=== PATIENT | male | born 1940 | race Caucasian/White ===

== ENCOUNTER 2018-03-17 20:39 | Emergency (ER) | payer MEDICARE, BC ==
[2018-03-17 21:19] VITALS: BP 112/85
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
[2018-03-17] MEDS ORDERED: Sulfamethox/Trimethoprim DS 800/160* TAB PO ONE (22:05)
== END 2018-03-17 22:25 | disposition home or self-care (01) ==
LOC: UCCORT 20:39
DX: S89.92XA Unspecified injury of left lower leg, initial encounter (principal); W22.8XXA Striking against or struck by other objects, initial encounter; Y92.9 Unspecified place or not applicable
CPT/HCPCS: 87070; 87077; 87186; 87205; 99212; A9270-GY; G0463

== ENCOUNTER 2018-04-03 21:18 | Emergency (ER) | payer MEDICARE, BC ==
[2018-04-03 21:38] VITALS: BP 97/69
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
== END 2018-04-03 21:59 | disposition home or self-care (01) ==
LOC: UCCORT 21:18
DX: S81.819D Laceration without foreign body, unspecified lower leg, subsequent encounter (principal); L03.119 Cellulitis of unspecified part of limb; X58.XXXD Exposure to other specified factors, subsequent encounter; Z79.2 Long term (current) use of antibiotics
CPT/HCPCS: 99212; G0463

== ENCOUNTER 2019-04-29 08:38 | Emergency (ER) | payer MEDICARE, BC ==
[2019-04-29 08:54] VITALS: BP 135/65
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
[2019-04-29 14:40] LABS: Albumin/Globulin Ratio 1.1 (1-3); BUN/Creatinine Ratio 15.7 (8-20); Calcium 9.3 mg/dL (8.6-10.3); EGFR African American 70.2 (>60); Globulin 3.5 g/dL (2-4); Potassium 4.9 mmol/L (3.5-5.0); Total Bilirubin 0.5 mg/dL (0.2-1.0); Total Protein 7.5 g/dL (6.4-8.9)
[2019-04-29 14:41] LABS: Hematocrit 43 % (42-52); Hemoglobin 14.7 g/dL (14.0-18.0); Mean Corpuscular HGB Conc 34 g/dL (31-36); Mean Corpuscular Hemoglobin 32 pg (27-31); Mean Corpuscular Volume 95 fL (80-94); Red Blood Count 4.57 10^6 /uL (4.18-5.48); Red Cell Distribution Width 13 % (10-15); White Blood Count 10.5 10^3/uL (3.5-10.8)
[2019-04-29 15:12] LABS: ABS Basophils 0.1 10^3/ul (0-0.2); ABS Eosinophils 0.3 10^3/ul (0-0.6); ABS Lymphocytes 1.9 10^3/ul (1.0-4.8); ABS Monocytes 0.9 10^3/ul (0-0.8); ABS Neutrophils 7.3 10^3/ul (1.5-7.7); Lymphocyte % 18.6 %; Nucleated Red Blood Cells % 0.4; Platelet Count Platelets clumped. 10^3/uL (150-450)
--- NOTE | 2019-04-30 07:33 | UC ---
- Progress Note Progress Note: Lab results come back from April 29, 2019 Creatinines mildly elevated at 1.21 and alcohol phosphatase elevated at 115 We have 1 prior creatinine level which was normal. We have a prior alkaline phosphatase which was at a similar level. Patient was here with fatigue and treated for urinary tract infection with Bactrim. Urine culture results are still pending. Nursing to call patient and ensure that he is improving. Also inform him of the lab results and have him drink plenty of water to help with a creatinine and follow-up with his primary care doctor. Course/Dx - Diagnoses Provider Diagnoses: UTI (urinary tract infection), Dehydration Discharge - Sign-Out/Discharge Documenting (check all that apply): Patient Departure All imaging exams completed and their final reports reviewed: No Studies - Discharge Plan Condition: Stable Disposition: HOME Prescriptions: Sulfamethox/Trimethoprim DS* [Bactrim DS 800/160 TAB*] 1 tab PO BID 5 Days #10 tab Patient Education Materials: Dehydration (ED), Urinary Tract Infection in Men ( ED) Referrals: Philip Hassan MD [Primary Care Provider] - 1 Week Additional Instructions: Complete antibiotics, it has been prescribed to the pharmacy. Somebody will call you with any abnormal test results. Maintain hydration. Try electrolyte drinks like Gatorade. Follow up with your primary care doctor is a scheduled for . Patients blood pressure slightly high in Urgent care today , plan follow up with PCP for better control. Return to Urgent care / ER if symptoms get worse. - Billing Disposition and Condition Condition: STABLE Disposition: Home
== END 2019-04-29 10:20 | disposition home or self-care (01) ==
LOC: UCCORT 08:38
DX: N39.0 Urinary tract infection, site not specified (principal); E86.0 Dehydration; Z85.46 Personal history of malignant neoplasm of prostate; Z92.3 Personal history of irradiation
CPT/HCPCS: 36415; 80053; 81003; 85025; 87086; 99212; G0463

== ENCOUNTER 2019-07-23 15:27 | Emergency (ER) | payer MEDICARE, BC ==
--- OUTSIDE RECORDS SUMMARY | 2019-07-23 15:48 | XMS REPORT | Continuity of Care Document ---
:1940 Author Organization [facility] Address [address], [place] [id number] Phone Care Team Providers Name Role Phone Sami Carrasco MD Unavailable Unavailable Allergies, Adverse Reactions, Alerts Substance Reaction Status No information Medications Medication Instructions Dosage Effective Dates Status Comments (start - stop) prednisone 5 mg take 4 Tablet by 20 MG - No Longer tablet oral route every Active day for 4 days then decrease by 1 tab every 4 days Problems Condition Effective Dates (start - stop) Clinical Status Comments Pain in joint Polymyalgia rheumatica Elevated ESR Back pain Procedures Procedure Date OFFICE/OUTPATIENT VISIT, NEW ROUTINE VENIPUNCTURE *XRAY ENTIRE SPINE AP/LAT COMPLETE CBC W/AUTO DIFF WBC RBC SED RATE, AUTOMATED ALANINE AMINO (ALT) (SGPT) TRANSFERASE (AST) (SGOT) ASSAY OF CK (CPK) ASSAY OF CREATININE C-REACTIVE PROTEIN ASSAY OF BLOOD/URIC ACID ANTINUCLEAR ANTIBODIES Results Test Name Date and Time Measure Units Reference Range Abnormal Flag Status Comments Panel Description: CBC Final WBC 16:27:00 10.0 10*3/uL 3.7-10.1 Final RBC 16:27:00 4.18 10*6/uL 4.00-5.90 Final HGB 16:27:00 13.2 g/dL 13.9-18.0 L Final HCT 16:27:00 40.8 % 39.0-55.0 Final MCV 16:27:00 97.6 fL 70.0-100.0 Final MCH 16:27:00 31.6 pg 26.0-34.0 Final MCHC 16:27:00 32.3 g/dL 31.0-37.0 Final RDW 16:27:00 12.8 % 10.0-15.0 Final PLATELETS 16:27:00 265 10*3/uL 150-500 Final MPV 16:27:00 8.3 fL 6.0-10.0 Final DESTINEY# 16:27:00 6.42 10*3/uL 2.10-8.00 Final LYM# 16:27:00 2.39 10*3/uL 1.00-5.00 Final MONO# 16:27:00 0.93 10*3/uL 0.10-1.00 Final EOS# 16:27:00 0.2 10*3/uL 0.0-0.5 Final BASO# 16:27:00 0.1 10*3/uL 0.0-0.2 Final DESTINEY% 16:27:00 64.3 % 50.0-80.0 Final LYM% 16:27:00 24.0 % 25.0-50.0 L Final MONO% 16:27:00 9.3 % 2.0-10.0 Final EOS% 16:27:00 1.8 % 0.0-5.0 Final BASO% 16:27:00 0.6 % 0.0-4.0 Final Panel Description: JAMEE W/ REFLEX Final KRZYSZTOF 16:27:00 9 UNITS 0-20 Final Interpretation: Negative < 20; Moderate Positive 21-60; Positive >60.

Panel Description: ESR Final ESR 16:27:00 26 mm/Hr 0-20 H Final Panel Description: ALT Final ALT 16:27:00 48 U/L 30-65 Final Panel Description: AST Final AST 16:27:00 26 U/L 15-37 Final Panel Description: CREATINE KINASE Final CREATINE KINASE 16:27:00 141 U/L 39-308 Final Panel Description: CREATININE Final CREATININE 16:27:00 1.4 mg/dL 0.9-1.2 H Final eGFR 16:27:00 49.0 mL/min/1.73m Final Panel Description: CRP Final CRP 16:27:00 6.4 mg/dL 0.0-1.0 H Final Panel Description: URIC ACID Final URIC ACID 16:27:00 5.2 mg/dL 2.4-8.6 Final Advance Directives Directive Yes / No Effective Date File Name Resuscitation Not Answered N/A N/A Life Support Not Answered N/A N/A Intubation Not Answered N/A N/A Antibiotics Not Answered N/A N/A IV Fluid Support Not Answered N/A N/A Tube Feed Not Answered N/A N/A Other Directive N/A N/A WARNING:The information contained in this section is historical and is provided for information onlyand does not constitute a legal document or any assurance that the information is still accurate. Please verify the information with the olea of the legal document before using it for clinical purposes. Encounters Encounter Practice Location Reason(s) Diagnoses Date Provider Providers Description For Visit Copied on Encounter OFFICE/OUTPA Arthritis Arthritis *New Pain in [facility] Referring [facility] VISIT, [facility] Patient jointPolymyalgi [phone] MD Gallardo. Provider: [facility] Referral a [phone], [phone] [place] [facility] g[facility], [facility], pain [place] [place], [place], [id number], [address] [place] [id number], . [address] tel:[phone], tel:[phone] [place], [place], [id number]. tel:[phone] Family History Family Member Diagnosis Age At Onset No information Immunizations Vaccine Date Status Comments No information Payers Payer name Insurance type Covered constitution party ID Authorization(s) Medicare MB [id number] BCBS No Referral Required [id number] Social History Type Description Quantity Date Captured Comments Alcohol Use Details 3 drinks occasion Caffeine Use Details No Tobacco Use Status Current non-smoker Smoking Status Never smoker Non-Smoking Tobacco : No Details Available : No Details Available 2018 Use Details Sex Male Vital Signs Date / Height Weight BMI Pulse Blood Temperature Respiratory Body Head BMI Pulse Inhaled Time: Rate Pressure Rate Surface Circumference percentile Ox Ox Area 74.00 216.00 in lbs 3 3:28 kg/m PM eter (2) Chief Complaint And Reason For Visit Most recent encounter only, dated '06/13/2019 14:37'. New Patient Referral (chief complaint). Description: Patient is experiencing generalized morning stiffness for 1 Hour, fatigue and weight loss. Patient denies having abdominal pain, hair loss, diarrhea, loss of appetite, eye symptoms, fever, headache, joint swelling, rash, Raynaud's, oral ulcers (mouth sores), dry mouth, photosensitivity and pleuritic pain. Reason For Referral Reason For Referral No information Plan Of Treatment Date Type Action Status Referral Ordered: ordered *XRAY ENTIRE SPINE AP/LAT Appointment Jean Carlos Ramos BOOKED History Of Present Illness Encounter Date Complaint History Of Present Illness *New Patient Referral Patient is experiencing generalized morning stiffness for 1 Hour, fatigue and weight loss. Patient denies having abdominal pain, hair loss, diarrhea, loss of appetite, eye symptoms, fever, headache, joint swelling, rash, Raynaud's, oral ulcers (mouth sores), dry mouth, photosensitivity and pleuritic pain. Functional Status Date Functional Assessment No information Medications Administered Medication Instructions Dosage Effective Dates (start - stop) Status Comments No information Instructions Date Instruction Additional Information No information
[2019-07-23 17:14] VITALS: BP 146/66
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
[2019-07-24 11:51] LABS: ABS Basophils 0.1 10^3/ul (0-0.2); ABS Eosinophils 0.1 10^3/ul (0-0.6); ABS Neutrophils 8.7 10^3/ul (1.5-7.7); Eosinophil % 1.2 %; Hematocrit 43 % (42-52); Hemoglobin 14.4 g/dL (14.0-18.0); Lymphocyte % 16.5 %; Mean Corpuscular HGB Conc 33 g/dL (31-36); Mean Corpuscular Hemoglobin 32 pg (27-31); Mean Corpuscular Volume 96 fL (80-94); Nucleated Red Blood Cells % 0.1; Platelet Count 233 10^3/uL (150-450); Red Blood Count 4.53 10^6 /uL (4.18-5.48); Red Cell Distribution Width 16 % (10-15); White Blood Count 11.9 10^3/uL (3.5-10.8)
[2019-07-24 12:00] LABS: Calcium 9.4 mg/dL (8.6-10.3); Total Bilirubin 0.4 mg/dL (0.2-1.0)
[2019-07-24 12:06] LABS: Albumin/Globulin Ratio 1.4 (1-3); BUN/Creatinine Ratio 23.7 (8-20); C Reactive Protein 3.69 mg/L (<8.01); Globulin 2.8 g/dL (2-4); Total Protein 6.8 g/dL (6.4-8.9)
--- NOTE | 2019-07-25 07:22 | UC ---
- Progress Note Progress Note: Lab work comes back from July 23, 2019. CBC shows a slightly elevated white blood cell count 11.9 thousand normal is 3.5 -10.8. BUN slightly elevated at 27 normal is 6-24. Creatinine was normal. Blood glucose 146 normal range of 70-100. Patient was seen here for increased urinary frequency and urgency and was started on Bactrim for potential UTI. His finger stick blood sugar was also elevated in clinic. Patient does not have a history of diabetes. He's also on daily prednisone for polymyalgia rheumatica. Also MCV and MCH and RDW are slightly elevated. Nursing to call patient and to ensure the patient is having a scheduled follow- up with his primary care doctor and/or his [employer] professor. Course/Dx - Diagnoses Provider Diagnoses: Increased urinary frequency, Hyperglycemia Discharge ED - Sign-Out/Discharge Documenting (check all that apply): Patient Departure All imaging exams completed and their final reports reviewed: No Studies - Discharge Plan Condition: Stable Disposition: HOME Prescriptions: Sulfamethox/Trimethoprim DS* [Bactrim DS 800/160 TAB*] 1 tab PO BID #20 tab Patient Education Materials: Nondiabetic Hyperglycemia (ED), Urinary Urgency and Frequency (DC) Referrals: Philip Hasasn MD [Primary Care Provider] - Additional Instructions: FOLLOW UP WITH YOUR PRIMARY CARE DOCTOR WITHIN 10 DAYS. CALL BOTH YOUR PRIMARY CARE DOCTOR AND HEAT TRANSFER TECHNICIAN TOMORROW TO INFORM THEM OF YOUR URINARY SYMPTOMS AND ELEVATED BLOOD SUGAR. GO TO THE EMERGENCY DEPARTMENT IF NOT IMPROVING OR YOUR CONDITION WORSENS; PAIN , FEVER, YOU FEEL ILL OR ANY QUESTIONS OR CONCERNS - Billing Disposition and Condition Condition: STABLE Disposition: Home
--- NOTE | 2019-07-26 07:16 | UC ---
- Progress Note Progress Note: please notify pt no UTI stop antibiotic see PCP as directed Course/Dx - Diagnoses Provider Diagnoses: Increased urinary frequency, Hyperglycemia Discharge ED - Sign-Out/Discharge Documenting (check all that apply): Post-Discharge Follow Up All imaging exams completed and their final reports reviewed: No Studies - Discharge Plan Condition: Stable Disposition: HOME Prescriptions: Sulfamethox/Trimethoprim DS* [Bactrim DS 800/160 TAB*] 1 tab PO BID #20 tab Patient Education Materials: Nondiabetic Hyperglycemia (ED), Urinary Urgency and Frequency (DC) Referrals: Philip Hassan MD [Primary Care Provider] - Additional Instructions: FOLLOW UP WITH YOUR PRIMARY CARE DOCTOR WITHIN 10 DAYS. CALL BOTH YOUR PRIMARY CARE DOCTOR AND EXECUTIVE CREATIVE DIRECTOR TOMORROW TO INFORM THEM OF YOUR URINARY SYMPTOMS AND ELEVATED BLOOD SUGAR. GO TO THE EMERGENCY DEPARTMENT IF NOT IMPROVING OR YOUR CONDITION WORSENS; PAIN , FEVER, YOU FEEL ILL OR ANY QUESTIONS OR CONCERNS - Billing Disposition and Condition Condition: STABLE Disposition: Home
== END 2019-07-23 18:04 | disposition home or self-care (01) ==
LOC: UCCORT 15:27
DX: R39.15 Urgency of urination (principal); R35.0 Frequency of micturition; R73.9 Hyperglycemia, unspecified; Z85.46 Personal history of malignant neoplasm of prostate
CPT/HCPCS: 36415; 80053; 81003; 85025; 86140; 87086; 99212; G0463

== ENCOUNTER 2019-12-22 19:34 | Emergency (ER) | payer MEDICARE, BC ==
--- OUTSIDE RECORDS SUMMARY | 2019-12-22 19:40 | XMS REPORT | Continuity of Care Document ---
:1940 External Reference #:[id number] Author Name Richard Amado DO Address [address] [place] [address] Care Team Providers Name Role Phone Richard Amado DO - Family Medicine Care Team Information Nuclear Control Operator [phone] Problems Active Problems Provider Date Plantar fascial fibromatosis Kandi Lira MD Onset: 05/18/2007 Adult health examination Kandi Lira MD Onset: 08/31/2007 Infection screening Kandi Lira MD Onset: 08/31/2007 Thyroid disorder screening Kandi Lira MD Onset: 08/31/2007 Hyperlipidemia screening Kandi Lira MD Onset: 08/31/2007 Electrocardiogram abnormal Kandi Lira MD Onset: 08/31/2007 Neoplasm of uncertain behavior of skin Kandi Lira MD Onset: 08/31/2007 Hearing loss Kandi Lira MD Onset: 08/31/2007 Impotence of organic origin Kandi Lira MD Onset: 10/16/2008 Malignant tumor of prostate Kandi Lira MD Onset: 10/24/2009 Disorder of iron metabolism Kandi Lira MD Onset: 04/12/2014 Abnormal glucose level Kandi Lira MD Onset: 04/12/2014 Cholelithiasis without obstruction Kandi Lira MD Onset: 11/26/2014 Note: dx via sono in Steatosis of liver Kandi Lira MD Onset: 11/26/2014 Note: dx via sono, Polymyalgia rheumatica Richard Amado DO Onset: 11/12/2019 Social History Type Date Description Comments Sex Unknown Tobacco Use Start: Unknown End: Former Cigarette Smoker 1/2 PPD X 5 YRS, Unknown QUIT AT 26 ETOH Use Currently consumes 4 DR/WEEK AFTER GOLF alcohol Tobacco Use Start: Unknown End: Patient is a former Unknown smoker Recreational Drug Use Denies Drug Use Smoking Status Reviewed: 11/12/19 Patient is a former smoker Enjoy Exercising Enjoys Exercising Sun Exposure Does not use sunscreen Seat Belt/Car Seat always uses seat belt Allergies, Adverse Reactions, Alerts Description No Known Drug Allergies Medications Active Medications SIG Qnty Indications Ordering Provider Date Prednisone 1 1/2 Tabs by 30tabs Unknown 5mg Tablets mouth every day History Medications Amoxicillin 1 by mouth 20tabs J02.9 Philip Hassan 08/02/2019 - 875mg twice a day 10/17/2019 Tablets Medications Administered in Office Medication SIG Qnty Indications Ordering Provider Date Depo Medrol 80 MG Philip Hassan MD 05/22/2019 Injection Immunizations CPT Code Status Date Vaccine Reaction Lot # [id number] Given 06/17/2019 Fluzone Highdose Age 65 And Over PER PT Preservative & Antibiotic Free 14602 Given 10/11/2018 Fluzone Highdose Age 65 And Over [id number] Preservative & Antibiotic Free 07739 Given 03/07/2018 Pneumococcal 23 Immunization Adult Or [id number] Immunosuppressed Patient 50661 Given 09/27/2015 Influenza Vac, Quadrivalent, Split, [id number] 0.5mL Dosage, Im Use 10050 Given 09/27/2015 Prevnar 13 Pneumococal Conjugate [id number] Vaccine 73840 Given 04/12/2014 Tdap (Boostrix)tetanus, diptheria [id number] toxoid & acellular pertussis 51416 Given 08/31/2007 Pneumococcal 23 Immunization Adult Or [id number] Immunosuppressed Patient 45702 Given 08/31/2007 Afluria Or Fluvirin Flu Vac [id number] Intramuscular Vital Signs Date Vital Result Comment 11/12/2019 4:00pm Weight 223.00 lb Heart Rate 84 /min BP Systolic 136 mmHg BP Diastolic 70 mmHg Respiratory Rate 18 /min Height 74 inches 6'2" 11/12/19 BMI (Body Mass Index) 28.6 kg/m2 08/02/2019 2:24pm Body Temperature 97.9 F Weight 214.00 lb Heart Rate 88 /min BP Systolic 126 mmHg BP Diastolic 72 mmHg Respiratory Rate 17 /min Height 74 inches 6'2" O2 % BldC Oximetry 97 % BMI (Body Mass Index) 27.5 kg/m2 Results Test Acquired Date Facility Test Result H/L Range Note Hemoglobin A1c 08/22/2019 [place] Hemoglobin A1c 7.1 % High 4.1-5.9 1 Estimated Average Glucose Calc 157 mg/dL High 71-140 [facility] Abnormal 2 finding Culture <SEE NOTE> CBC Auto Diff 07/23/2019 [facility] White Blood 11.9 10^3/uL High 3.5-1 3 Count 0.8 Red Blood Count 4.53 10^6/uL Normal 4.18-5.48 Hemoglobin 14.4 g/dL Normal 14.0-18.0 Hematocrit 43 % Normal 42-52 Mean Corpuscular Volume 96 fL High 80-94 Mean Corpuscular Hemoglobin 32 pg High 27-31 Mean Corpuscular HGB Conc 33 g/dL Normal 31-36 Red Cell Distribution Width 16 % High 10-15 Platelet Count 233 10^3/uL Normal 150-450 Mean Platelet Volume 10.0 fL Normal 7.4-10.4 Abs Neutrophils 8.7 10^3/uL High 1.5-7.7 Abs Lymphocytes 2.0 10^3/uL Normal 1.0-4.8 Abs Monocytes 1.0 10^3/uL High 0-0.8 Abs Eosinophils 0.1 10^3/uL Normal 0-0.6 Abs Basophils 0.1 10^3/uL Normal 0-0.2 Abs Nucleated RBC 0.0 10^3/uL Granulocyte % 73.1 % Lymphocyte % 16.5 % Monocyte % 8.6 % Eosinophil % 1.2 % Basophil % 0.6 % Nucleated Red Blood Cells % 0.1 Comp Metabolic Panel 07/23/2019 [facility] Sodium 136 mmol/L Normal 135-145 Potassium 5.0 mmol/L Normal 3.5-5.0 Chloride 105 mmol/L Normal 101-111 Co2 Carbon Dioxide 25 mmol/L Normal 22-32 Anion Gap 6 mmol/L Normal 2-11 Calcium 9.4 mg/dL Normal 8.6-10.3 Albumin 4.0 g/dL Normal 3.2-5.2 Total Bilirubin 0.40 mg/dL Normal 0.2-1.0 Glucose 146 mg/dL High 70-100 Blood Urea Nitrogen 27 mg/dL High 6-24 Creatinine 1.14 mg/dL Normal 0.67-1.17 BUN/Creatinine Ratio 23.7 High 8-20 Total Protein 6.8 g/dL Normal 6.4-8.9 Globulin 2.8 g/dL Normal 2-4 Albumin/Globulin Ratio 1.4 Normal 1-3 Alkaline Phosphatase 97 U/L Normal 34-104 Alt 33 U/L Normal 7-52 Ast 23 U/L Normal 13-39 Egfr Non- 62.0 >60 Egfr 75.0 >60 4 Laboratory test 07/23/2019 [facility] C Reactive 3.69 mg/L Normal <8.01 5 finding Protein Laboratory test 07/23/2019 [facility] Point of 154 mg/dL High 70-100 6 finding Care Glucose Urine Culture And 07/23/2019 [facility] Urine SEE RESULT 7 , 8 Sensitivities Culture BELOW Poc Urinalysis 07/23/2019 [facility] Poc Glucose, Trace Abnormal Negative Urine Poc Bilirubin, Urine Negative Negative Poc Ketone, Urine Negative Negative Poc Specific Mountain, Urine 1.020 Normal 1.010-1.030 Poc Blood, Urine Negative Negative Poc pH, Urine 5.5 Normal 5-9 Poc Protein, Urine Negative Negative Poc Urobilinogen, Urine 0.2 Negative Poc Nitrite, Urine Negative Negative Poc Leukocytes, Urine Negative Negative Poc Color, Urine Yellow Poc Clarity, Urine Clear 9 Laboratory test 06/11/2019 [facility](Fecal Occult Negative Negative finding Blood) Laboratory test 06/07/2019 [facility] Hematocrit 39.7 % Low (41.0-53.0) 10 finding Laboratory test 06/07/2019 [facility] Cytology Fluid SEE NOTE 11 finding Specimen RBC 4.22 10*6/uL Low (4.60-6.10) 12 Rout Urine W/ Micro -RL 06/07/2019 [facility] Color YELLOW Appearance CLEAR Spec Grav Urine 1.022 (1.003-1.030) PH Urine 5.0 (5.0-7.5) Leuk Esterase NEGATIVE (Neg) Nitrite Urine NEGATIVE (Neg) Protein Urine NEGATIVE (Neg) Glucose Urine NEGATIVE (Neg) Ketone Urine NEGATIVE (Neg) Urobilinogen 0.2 mg/dL (0-1.0) Bilirubin Urine NEGATIVE (Neg) Blood/HGB Urine NEGATIVE (Neg) Epithelial Cells NEGATIVE [HPF] (Neg) Hyaline Casts 1.9 [LPF] (0-5) Bacteria NEGATIVE [HPF] (Neg) Urine WBC 6.5 [HPF] (0-8) Urine RBC 1.2 [HPF] (0-3) 13 Retic Count -RL 06/07/2019 [facility] Retic % 1.2 % (0.6-2.1) Retic Index 1.0 % (0.5-1.9) Absolute Retic 0.05 10*6/uL (0.027-0.101) 14 Laboratory test 06/07/2019 [facility] Urine Culture Microbiology res <SEE 15 finding NOTE> Iron Panel 06/07/2019 [facility] Iron, Total 128 g/dL 65-175 Transferrin 191.0 mg/dL Low 203.0-362.0 Tibc (calc) 267 g/dL 261-478 % Iron Saturation 47.9 % High 13.0-45.0 Laboratory test finding 06/07/2019 [facility] Vitamin B12 329 pg/mL 180- 914 Folate 16.5 ng/ml 5.9-24.8 Laboratory test finding 06/04/2019 [facility] Lipase 145 U/L (65-230) 16 Magnesium 2.0 mg/dL (1.7-2.4) 17 Phosphorus 3.5 mg/dL (2.5-4.5) 18 TSH,Ultrasensitive 3.360 mIU/L (0.360-4.170) 19 Esr 88 mm/h High (0-20) 20 C Reactive Protein 5.3 mg/dL High (0.0-0.5) 21 Hepatic Function 06/04/2019 [facility] Total Protein 8.5 g/dL High (6.4-8.2 ) Albumin 3.4 g/dL (3.2-4.5) Globulin 5.1 g/dL High (2.7-4.3) Alb/Glob Ratio 0.7 RATIO Bilirubin,Total 0.7 mg/dL (0.0-1.0) Bilirubin,Conjugated 0.2 mg/dL (0.0-0.3) Bilirubin,Unconj. 0.5 mg/dL (0.0-0.7) Alkaline Phosphatase 154 U/L High (45-117) Ast (Sgot) 17 U/L (11-39) Alt (SGPT) 36 U/L (12-78) 22 Laboratory test finding 06/04/2019 [facility] CK 111 U/L (39-308) 23 CBC With Diff 06/04/2019 [facility] WBC 10.9 10*3/uL (4.1-11.0) RBC 4.41 10*6/uL Low (4.60-6.10) HGB 14.0 g/dL (13.5-18.0) HCT 41.1 % (41.0-53.0) MCV 93.1 fL (80.0-95.0) MCH 31.7 pg (27.0-32.0) MCHC 34.0 g/dL (32.0-36.0) RDW 13.2 % (10.5-14.5) PLT 295 10*3/uL (150-450) MPV 9.1 fL (7.1-10.7) Neut % 71.0 % (35.0-75.0) Lymph % 18.5 % (16.0-52.0) [place] % 8.3 % High (0.0-8.0) Eos % 1.5 % (0.0-5.0) Baso % 0.7 % (0.0-4.0) Neut # 7.8 10*3/uL High (1.8-7.7) Lymph # 2.0 10*3/uL (1.2-4.8) [place] # 0.9 10*3/uL High (0.0-0.8) Eos # 0.2 10*3/uL (0.0-0.5) Baso # 0.1 10*3/uL (0.0-0.2) 24 Poc Urinalysis 06/04/2019 [facility] Poc Urine Color DESMOND Poc Urine Appearance CLEAR Poc Spec Grav Urine 1.025 (1.003-1.030) Poc PH Urine 5.5 (5.0-7.5) Poc Leuk Esterase Ur TRACE (Neg) Poc Nitrite Urine NEGATIVE (Neg) Poc Protein Urine 2+ mg/dL Abnormal (Neg) Poc Glucose Urine NEGATIVE mg/dL (Neg) Poc Ketone Urine NEGATIVE mg/dL (Neg) Poc Urobilinogen Ur 0.2 EU/dL (0.2-1.0) Poc Bilirubin Ur NEGATIVE (Neg) Poc Blood HGB Urine NEGATIVE (Neg) 25 Laboratory test 06/04/2019 [facility] Poc Troponin I <0.01 ng/mL Low (0.01- 0.07) 26 finding Chem 8 Panel 06/04/2019 [facility] Poc Sodium 137 mmol/L (136-145) Poc Potassium 4.7 mmol/L (3.6-5.2) Poc Chloride 103 mmol/L (100-108) Poc Co2 26 mmol/L (22-31) Poc Anion Gap 8 mmol/L (7-16) Poc BUN 28 mg/dL High (7-24) Poc Creatinine 1.3 mg/dL (0.8-1.3) Poc Buncr 21.5 RATIO High (10.0-20.0) Poc Glu 123 mg/dL High (70-99) Poc Ionized Calcium 4.8 mg/dL (4.6-5.3) Poc GFR 53 ml/min/1.73m2 Low (>59) Poc GFR Amer >60 ml/min/1.73m2 (>59) Poc GFR Interp <SEE NOTE> 27 Poc HCT 44 % (41.0-53.0) Perform Lab [facility] PERFORMED BY [facility] <SEE NOTE> 28 Laboratory test 05/22/2019 [facility] Urine Culture Microbiology res 29 finding <SEE NOTE> Laboratory test 05/22/2019 [facility] Cytology Fluid SEE NOTE 30 finding Specimen Laboratory test 05/22/2019 [facility] PSA 0.520 ng/mL 0.000- 31 finding 4.000 Hemoglobin A1c 05/22/2019 [facility] Hemoglobin A1c 6.6 % High 4.1-5. 9 Estimated Average Glucose Calc 143 mg/dL High 71-140 Laboratory test finding 05/22/2019 [facility] TSH 3.76 uIU/mL 0.35-4.94 Lipid 05/22/2019 [facility] Cholesterol 168 mg/dL 50-199 Triglycerides 158 mg/dL 30-200 HDL 31 mg/dL 29-71 32 Chol/ HDL Ratio 5.5 ratio 4.0-6.7 VLDL 32 mg/dL High 2-29 LDL (Calc) 106 mg/dL High 20-99 33 Comprehensive Met Panel-[facility] 05/22/2019 [facility] Sodium 137 mmol/L 135- 146 34 Potassium 4.2 mmol/L 3.5-5.2 Chloride# 103 mmol/L 97-110 35 Carbon Dioxide 24 mmol/L 24-34 Calcium 9.2 mg/dL 8.5-10.5 36 Glucose 116 mg/dL High 70-105 BUN 17 mg/dL 6-26 Creatinine 1.0 mg/dL 0.5-1.4 Total Protein 7.4 g/dL 6.0-8.0 Albumin 3.5 g/dL Low 3.6-4.9 Globulin 3.9 g/dL High 2.0-3.5 A/G Ratio 0.9 Ratio Low 1.0-2.2 Total Bilirubin 0.7 mg/dL 0.1-1.3 Alkaline Phosphatase 111 U/L 24-140 Alt 29 U/L 3-42 Ast 23 U/L 8-42 Anion Gap 10 mmol/L 5-15 37 Female Egfr 51 Low >60 38 Male Egfr 68 >60 39 CBC with Auto Diff-fcmg 05/22/2019 [facility] WBC 8.6 K/uL 4.1-11.0 RBC 4.09 M/uL Low 4.60-6.10 Hemoglobin 13.1 gm/dL Low 13.5-18.0 Hematocrit 38.6 % Low 41.0-53.0 MCV 94.3 fL 80.0-97.0 MCH 31.9 pg 27.0-32.0 MCHC 33.8 g/dL 32.0-36.0 RDW 13.2 % 11.5-14.5 PLT Count 252 K/ul 140-400 MPV 9.0 FL 7.1-10.7 Neutrophil 71.8 % 35.0-75.0 Lymphocyte 17.6 % 16.0-52.0 Monocyte 7.8 % 2.0-10.0 Eosinophil 2.1 % 0.0-5.0 Basophil 0.7 % 0.0-4.0 Abs Neutrophils 6.1 K/uL 2.1-8.0 Abs Lymphocytes 1.5 K/uL 0.8-5.5 Abs Monocytes 0.7 K/uL 0.1-1.0 Abs Eosinophils 0.2 K/uL 0.0-0.5 Abs Basophils 0.1 K/uL 0.0-0.3 Laboratory test 05/22/2019 [facility] Total Testosterone 141 ng/dL Low 285- 650 finding Adult Male Olga Screen With 05/22/2019 [facility] Olga Screen NEGATIVE Negative Reflex-[facility] dsDNA IgG 1.10 IU/mL 0.00-9.00 40 Arthritis Panel-[facility] 05/22/2019 [facility] Rheumatoid <10.0 IU/mL 0.0-10.0 Factor-[facility] Esr 75 mm/hr High 0-15 CRP-High 51.08 mg/L High 0.00-9.90 41 Uric Acid 5.7 mg/dL 2.6-8.4 Rout Urine W/ Micro -RL 05/22/2019 [facility] YELLOW Appearance CLEAR Spec Grav Urine 1.016 (1.003-1.030) PH Urine 5.5 (5.0-7.5) Leuk Esterase NEGATIVE (Neg) Nitrite Urine NEGATIVE (Neg) Protein Urine NEGATIVE (Neg) Glucose Urine NEGATIVE (Neg) Ketone Urine NEGATIVE (Neg) Urobilinogen 0.2 mg/dL (0-1.0) Bilirubin Urine NEGATIVE (Neg) Blood/HGB Urine NEGATIVE (Neg) Urine WBC * 6-10 [HPF] (0-5) Urine RBC NONE SEEN [HPF] (0-2) 42 1 pt states he has been on prednisone for the past 2 months 2 Microbiology results RESULT Beta Strep Not Group A Isolated 3 [id number] 4 Because ethnic data is not always readily available, this report includes an eGFR for both -Americans and non- Americans. The National Kidney Disease Education Program (NKDEP) does not endorse the use of the MDRD equation for patients that are not between the ages of 18 and 70, are , have extremes of body size, muscle mass, or nutritional status, or are non- or non-. According to the National Kidney Foundation, irrespective of diagnosis, the stage of the disease is based on the level of kidney function: Stage Description GFR(mL/min/1.73 m(2)) 1 Kidney damage with normal or decreased GFR 90 2 Kidney damage with mild decrease in GFR 60-89 3 Moderate decrease in GFR 30-59 4 Severe decrease in GFR 15-29 5 Kidney failure <15 (or dialysis) 5 [id number] 6 Game Producer: [id number] 8 SEE RESULT BELOW Name: JEAN CARLOS RAMOS : [address]: Joe Dyer MD Acct: [id number] Unit: [id number] AGE: 79 Location: [facility] Re07/23/19 SEX: M Status: DEP ER SPEC: [id number] BRETT: 07/23/[address] [facility] [address]: Joe Dyer MD REQ: [id number] RECD: 07/24/19 STATUS: TANYA YU DR: Philip Hassan MD _ SOURCE: URINE SPDESC: ORDERED: Urine Culture COMMENTS: [id number] Procedure Result Reported Site Urine Culture Final 07/25/19- 0955 ML No Growth (<1,000 CFU/mL) * ML - Main Lab . END OF REPORT DEPARTMENT OF PATHOLOGY, [address] [place] [address] Micky Crowder M.D. Director [facility] # [id number] Game Producer: [id number] Unless otherwise specified, testing performed by [facility] [address] [address] 11 [facility]. [address] [place] [address] MISCELLANEOUS CYTOLOGY REPORT Source of Specimen(s): A: LBP Urine, Voided Clinical Diagnosis and History: R82.998 Gross Description LBP Urine, Voided: 6 cc of yellow fluid received Final Diagnosis Specimen Adequacy Satisfactory Final Diagnosis NEGATIVE FOR HIGH-GRADE UROTHELIAL CARCINOMA. Urothelial cells with degenerative features, squamous epithelial cells, acute inflammatory cells and erythrocytes. Processed and screen As applicable, positive and negative controls for all immunohistochemical and/or special stains were reviewed and considered appropriate. Reported: 06/13/2019 11:07 Electronically Signed Out By Magui Castillo D.O. [facility] Operator: Isatu PAULINO(ASC) [facility] [place] ICD Code: R82.998 CPT Code: A: 00604L Unless otherwise specified, testing performed by [facility] [address] [address] Unless otherwise specified, testing performed by [facility] [address] [address] 13 Unless otherwise specified, testing performed by [facility] [address] [address] 14 Unless otherwise specified, testing performed by [facility] [address] [address] 15 Microbiology results SOURCE Clean Catch Midstream FINAL RESULT No growth 16 Unless otherwise specified, testing performed by [facility] [address] [address] 17 Unless otherwise specified, testing performed by [facility] [address] [address] 18 Unless otherwise specified, testing performed by [facility] [employer] [address] [address] 19 PERFORMED AT [address] [place] [address] Unless otherwise specified, testing performed by [facility] [address] [place] [address] 20 Unless otherwise specified, testing performed by [facility] [address] [place] [address] 21 Unless otherwise specified, testing performed by [facility] [address] [place] [address] 22 Unless otherwise specified, testing performed by [facility] [address] [place] [address] 23 Unless otherwise specified, testing performed by [place] [address] 24 Unless otherwise specified, testing performed by [facility] [address] [place] [address] 25 PERFORMED BY [facility] Unless otherwise specified, testing performed by [facility] [place] [address] 26 New reference range in effect 19. Less than 0.08: Myocardial injury unlikely Greater than or equal to 0.08: Highly suggestive of myocardial injury Correlation with rise and/or fall of serial troponins, clinical symptoms, and ECG changes is necessary. PERFORMED BY [facility] Unless otherwise specified, testing performed by [facility] [place] [address] 27 NORMAL KIDNEY FUNCTION OR MILD DISEASE - GFR >OR= 60 CHRONIC KIDNEY DISEASE - GFR 15 - 59 RENAL FAILURE - GFR <15 Est. GFR calculation based on the MDRD study equation, which assumes a steady state for creatinine. Est. GFR should not be used for medication dosing. 28 PERFORMED BY [facility] Unless otherwise specified, testing performed by [facility] [place] [address] 29 Microbiology results SOURCE Clean Catch Midstream FINAL RESULT No growth 30 [facility]. [address] [place] [address] MISCELLANEOUS CYTOLOGY REPORT Source of Specimen(s): A: LBP Urine, Voided Clinical Diagnosis and History: R82.998 Gross Description LBP Urine, Voided: 5cc clear yellow fluid Final Diagnosis Specimen Adequacy Satisfactory Final Diagnosis NEGATIVE FOR HIGH-GRADE UROTHELIAL CARCINOMA. Squamous epithelial cells, urothelial cells with degenerative features, acute inflammatory cells, and RBCs. Processed and screen As applicable, positive and negative controls for all immunohistochemical and/or special stains were reviewed and considered appropriate. Reported: 05/29/2019 14:01 Electronically Signed Out By Magui Castillo D.O. [facility] Operator: Ankita PAULINO([facility]) [facility] ICD Code: R82.998 CPT Code: A: 27498K Unless otherwise specified, testing performed by [facility] [place] [address] 31 Beginning 12/12/06 PSA values assayed at [email or web address] uses chemiluminescence methodology manufactured by [employer] for use on the DXI analyzer. Values obtained with different assay methods or kits can not be used interchangeably. Serum PSA measurement is not an absolute test for malignancy. The PSA value should be used in conjunction with information available from clinical evaluation and other diagnostic procedures. 32 Per NCEP ATP III Guidelines: Results lower than 40 mg/dL are suggestive of increased risk for coronary artery disease. Results > or = to 60 mg/dL are considered a negative risk factor. 33 Per NCEP ATP III Guidelines: Normal Population <130 Patients with medical conditions: CHD/DM Optimal: <100 Borderline high: 130-159 High: 160-189 Very high: >189 34 Updated reference range on new analyzer 35 Updated reference range on new analyzer 36 Updated reference range 02-14-2019 37 Updated Reference Range 38 Concerning GFR Guidelines for Americans: Normal function or mild renal disease, if clinically at risk: >/= 60 mL/min Moderately decreased: 30-59 Severely decreased: 15-29 Renal failure: <15 There is reduced accuracy above 60ml/min/1.73 m squared, but the numeric value may be clinically useful in the near 60 range 39 Concerning GFR Guidelines: Normal function or mild renal disease, if clinically at risk: >/= 60 mL/min Moderately decreased: 30-59 Severely decreased: 15-29 Renal failure: <15 There is reduced accuracy above 60ml/min/1.73 m squared, but the numeric value may be clinically useful in the near 60 range Glomerular Filtration Rate (GFR) is estimated based on the CKD-EPI equation, which assumes a steady state for creatinine as recommended by the National Kidney Disease Education Program in conjunction with the National Institutes of Health and the National Kidney Foundation. Clinical conditions in which it may be necessary to measure GFR by using clearance methods include extremes of age and body size, severe malnutrition or obesity, diseases of skeletal muscle, paraplegia or quadriplegia, vegetarian diet, rapidly changing kidney function, and calculation of the dose of potentially toxic drugs that are excreted by the kidneys. 40 Interpretation: <0.5 -9 IU/ml Negative 10-15 IU/ml Equivocal >15.0 IU/ml Positive 41 Recommended Cardiac Risk Assessment: Low < 1.0 mg/L Average 1.0 - 3.0 mg/L High > 3.0 mg/L 42 Unless otherwise specified, testing performed by [facility] [address] [place] [address] Procedures Date Code Description Status 11/12/2019 57279 Remove Impact Cerumen Irrigation/Lavage Completed 05/22/2019 50127 Inject/Drain Joint/Bursa Major W/Out Ultrasound Completed Guidance 10/13/2017 [id number] Colonoscopy Completed Medical Devices Description No Information Available Encounters Type Date Location Provider Dx Diagnosis Office Visit 08/02/2019 Philip Choi MD J02.9 Acute pharyngitis, 2:30p unspecified J02.0 Streptococcal pharyngitis Z68.27 Body mass index (BMI) 27.0-27.9, adult Office Visit 05/22/2019 9:30a Philip Choi MD Z68.27 Body mass index (BMI) 27.0-27.9, adult R53.83 Other fatigue Z13.228 Encounter for screening for other metabolic disorders Z13.220 Encounter for screening for lipoid disorders Z13.29 Encounter for screening for oth suspected endocrine disorder R73.09 Other abnormal glucose Z12.5 Encounter for screening for malignant neoplasm of prostate Z13.6 Encounter for screening for cardiovascular disorders M12.80 Oth specific arthropathies, NEC, [facility] site M19.012 Primary osteoarthritis, LEFT shoulder Office Visit 05/18/2019 3:15p Philip Choi MD M12.80 Oth specific arthropathies, NEC, [facility] site R53.83 Other fatigue Z68.28 Body mass index (BMI) 28.0-28.9, adult Assessments Date Code Description Provider 11/12/2019 M35.3 Polymyalgia rheumatica Richard Amado, 11/12/2019 R73.01 Impaired fasting glucose Richard Aamdo, 11/12/2019 H91.93 Unspecified hearing loss, bilateral Richard Amado, 11/12/2019 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, unspecified 11/12/2019 Z85.46 Personal history of malignant neoplasm of Richard Amado prostate 11/12/2019 M25.512 Pain in LEFT shoulder Richard AmadoDO 11/12/2019 H61.21 Impacted cerumen, RIGHT ear Richard AmadoDO 11/12/2019 J06.9 Acute upper respiratory infection, Richard Amado unspecified 11/12/2019 Z68.28 Body mass index (BMI) 28.0-28.9, adult Richard AmadoDO 08/22/2019 R73.01 Impaired fasting glucose Philip Hassan MD 08/22/2019 R73.01 Impaired fasting glucose Nurse Schedule Loc 8 08/22/2019 R73.01 Impaired fasting glucose [facility] 08/02/2019 J02.9 Acute pharyngitis, unspecified Philip Hassan MD 08/02/2019 J02.0 Streptococcal pharyngitis Philip Hassan MD 08/02/2019 J02.9 Acute pharyngitis, unspecified [facility] 08/02/2019 Z68.27 Body mass index (BMI) 27.0-27.9, adult Philip Hassan MD 06/11/2019 Z12.11 Encounter for screening for malignant [facility] neoplasm of colon 06/07/2019 D64.9 Anemia, unspecified Philip Hassan MD 06/07/2019 D64.9 Anemia, unspecified Nurse Schedule Loc 8 06/07/2019 R82.998 Other abnormal findings in urine Philip Hassan MD 06/07/2019 R82.998 Other abnormal findings in urine Nurse Schedule Loc 8 06/07/2019 D64.9 Anemia, unspecified [facility] 06/07/2019 R82.998 Other abnormal findings in urine [facility] 05/22/2019 Z68.27 Body mass index (BMI) 27.0-27.9, adult Philip Hassan MD 05/22/2019 R53.83 Other fatigue Philip Hassan MD 05/22/2019 Z13.228 Encounter for screening for other metabolic Philip Hassan MD disorders 05/22/2019 Z13.220 Encounter for screening for lipoid disorders Philip Hassan MD 05/22/2019 Z13.29 Encounter for screening for other suspected Philip Hassan MD endocrine disorder 05/22/2019 R73.09 Other abnormal glucose Philip Hassan MD 05/22/2019 Z12.5 Encounter for screening for malignant Philip Hassan MD neoplasm of prostate 05/22/2019 Z13.6 Encounter for screening for cardiovascular Philip Hassan MD disorders 05/22/2019 M12.80 Other specific arthropathies, not elsewhere Philip Hassan MD classified, unspecified site 05/22/2019 M19.012 Primary osteoarthritis, LEFT shoulder Philip Hassan MD 05/22/2019 Z13.6 Encounter for screening for cardiovascular [facility] disorders 05/22/2019 R53.83 Other fatigue [facility] 05/22/2019 Z13.228 Encounter for screening for other metabolic [facility] disorders 05/22/2019 Z13.220 Encounter for screening for lipoid disorders [facility] 05/22/2019 Z13.29 Encounter for screening for oth suspected [facility] endocrine disorder 05/22/2019 R73.09 Other abnormal glucose [facility] 05/22/2019 Z12.5 Encounter for screening for malignant [facility] neoplasm of prostate 05/22/2019 R82.998 Other abnormal findings in urine [facility] 05/22/2019 M12.80 Oth specific arthropathies, NEC, unsp site [facility] 05/22/2019 M79.10 Myalgia, unspecified site [facility] 05/22/2019 R53.83 Other fatigue [facility] 05/18/2019 M12.80 Other specific arthropathies, not elsewhere Philip Hassan MD classified, unspecified site 05/18/2019 R53.83 Other fatigue Philip Hassan MD 05/18/2019 Z68.28 Body mass index (BMI) 28.0-28.9, adult Philip Hassan MD Plan of Treatment Future Appointment(s):06/05/2020 10:30 am - Richard Amado, DO at [facility]11/12/2019 - Richard Amado, DOM35.3 Polymyalgia rheumaticaComments:I recommended the patient to continue taking tapering dose of Prednisone 7.5 mg as directed. Recommended the patient to follow up with Rheumatology as directed. Provided him lab orders. Will continue to monitor.Follow up:Schedule Medicare Wellness Exam in May.R73.01 Impaired fasting glucoseNew Labs:Hemoglobin A1c, Ordered: 11/12/19Comments:The patient's labs were reviewed with the patient that the A1c was at 7.1The patient will benefit from maintaining a diabetic diet and a regular exercise regimen and cutting back on pasta, potatoes, and breads.May check the sugars on regular basis and maintain a log of it and bring it with him during the next visit.We will recheck in the future.We will continue to monitor.H91.93 Unspecified hearing loss, bilateralComments:He uses hearing aids.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 Has had this treated with radiation in 2010. PSA was 0.5 when last checked. Will obtain PSA in the future.M25.512 Pain in LEFT shoulderComments:Recommended the patient to use gentle stretching using a resistant band.Recommended the patient to ice the area for at least 15 mins.If he is not on prednisone, he can take Ibuprofen.Call with questions/ concerns or worsening symptoms.H61.21 Impacted cerumen, RIGHT earJ06.9 Acute upper respiratory infection, unspecifiedComments:Recommended the pateint to treat this sympomatically. Call with questions/concerns or worsening symptoms.Z68.28 Body mass index (BMI) 28.0-28.9, adultComments:The patient's BMI is at 28.6. The patient was told to lose weight with low-calorie diet and exercises. We will continue to monitor his weight and BMI periodically. Functional Status Functional Condition Comment Date Status GLASSES Active Hearing Aid in Both ears Active Mental Status Description No Information Available Referrals Refer to Reason for Referral Status Appt Date Romulo Reed M.D. faxed referral and info to Patient Declined Derek's office, waiting to hear back with appt info. 07/24/19 [address] [facility], [facility] [address] [place] [address] [phone] Sami Carrasco MD lm for [employer] coordinator. faxed referral and Closed 06/13 info to [facility]. 06/01/19 pt notified of appt info. 06/01/19 [address] [place] [address] [phone]
[2019-12-22 19:44] VITALS: BP 139/77
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
== END 2019-12-22 20:05 | disposition home or self-care (01) ==
LOC: UCCORT 19:34
DX: M79.18 Myalgia, other site (principal)
CPT/HCPCS: 99211; G0463